=== PATIENT | female | born 1960 | race Caucasian/White ===

== ENCOUNTER 2020-01-09 20:10 | Emergency (ER) | payer MEDICAID, SELFPAY ==
[2020-01-09 20:53] VITALS: BP 124/82; PULSE 65; RESP 18; TEMP 37; O2SAT 97; BMI 25.0
--- NOTE | 2020-01-09 21:36 | ED.EYEPROB ---
HPI - Eye Problem General Chief complaint: Eye Problems Stated complaint: Eye pain Time Seen by Provider: 01/09/20 21:36 Source: patient Mode of arrival: ambulatory Limitations: no limitations History of Present Illness HPI Narrative: patient with no significant eye problems was sitting on the computer at 19:30 all of a sudden noticed in right eye she had floaters with scintillations no fix shape no loss of complete vision slight headache + Related Data Allergies Allergy/AdvReac Type Severity Reaction Status Date / Time ibuprofen [From MOTRIN] Allergy Unknown HIVES Unverified 11/03/19 15:02 naproxen [From ALEVE] Allergy Unknown STOMACH Unverified 11/03/19 15:02 PAIN liver extract Allergy Hives Verified 01/09/20 20:53 Review of Systems Review of Systems: REVIEW OF SYSTEMS: Pertinent positives and negatives are stated above in the history. GEN: no fevers, chills, fatigue HEENT: no nasal congestion, sore throat, ear pain NEURO: no , dizziness, focal weakness PULM: no cough, shortness of breath CV: no chest pain, palpitations, LE edema ABD: no abdominal pain, nausea, vomiting, diarrhea : no dysuria, urgency, frequency SKIN: no rash ROS otherwise negative x 10 PMFSH Past Medical History Medical History Anxiety Depression Social History Social History Alcohol intake: never Smoked in Last 30 Days: No Use of substances other than those prescribed or required for medical reasons: No Advance Directives: No Physical Exam Vital Signs: Vital Signs: Last Vital Signs Temp 98.6 F 01/09/20 20:53 Pulse 65 01/09/20 20:53 Resp 18 01/09/20 20:53 BP 124/82 01/09/20 20:53 Pulse Ox 97 01/09/20 20:53 Body Mass Index 25.0 Const: General: cooperative, healthy appearing, comfortable, no acute distress, well developed, alert and awake Nutritional Appearance: average body habitus Orientation/consciousness: oriented to person, oriented to place, oriented to time and patient oriented x3 Limitations: no limitations HENMT: Head: Yes normal to inspection Ears: hearing grossly normal bilaterally Eyes: Visual Bhandari: normal visual bhandari by confrontation Periorbital: periorbital findings normal Eyelids: Yes eyelids normal Conjunctivae: conjunctivae normal Sclerae: sclerae normal Corneas: corneas normal Pupils: Equal, round and reactive pupils present EOM: EOMs intact bilaterally Direct Ophthalmoscopy: normal light reflex, no photophobia, no papilledema, fundi normal bilaterally, anterior chamber normal and No retinal abnormality Neck: Neck: Yes normal visual inspection Carotids: normal carotid upstroke and no bruits Resp: Effort & Inspection: normal respiratory effort Auscultation: clear to auscultation bilaterally, no crackles, no rales and no rhonchi Cardio: Rate: regular rate Rhythm: regular rhythm Heart sounds: S2 normal heart sound present GI: Inspection: Yes normal to inspection Palpation (GI): Soft to palpation and nontender Neuro: General: oriented to person, oriented to place, oriented to time, patient oriented x3, gait normal, tone normal, moves all extremities, Normal light touch and pain sensation, no focal motor deficits and CN's II-XI intact bilaterally Cranial nerves: Yes CN's II-XII intact bilaterally, Yes Equal, round and reactive pupils present and Yes Nystagmus not present Extrem: General: Yes normal to inspection and Yes full ROM Procedures Procedure Narrative Procedure Narrative: ocular ultrasound of both eyes: done by myself no retinal detachment was seen no hemorrhage seen anterior chamber and posterior chamber seems to be normal Lens are intact MDM - Eye Problem MDM Narrative Medical decision making narrative: patient with acute onset of floaters with scintillations ultrasound of eyes is normal, fundus also normal likely cause of floaters is vitreous detachment or hemorrhage. Case discussed with Dr. Reyes artificial glass eye maker will see the patient tomorrow in the morning no need for any emergency at this time. patient visual acuity is normal with contact lenses Discharge Plan Discharge Clinical Impression: Vitreous degeneration and detachment Patient Disposition: Home, Self-Care Instructions: Visual Floaters (ED) Additional Instructions: see Dr. Reyes tomorrow at 740 am for further evaluation Referrals: Quinn Reyes [Physician] - 1 day Interventions: ED Discharge Assessment Last Done: 01/09/20 22:20 Discharge Date/Time: 01/09/20 22:21
== END 2020-01-09 22:21 | disposition home or self-care (01) ==
PROVIDERS: Emergency Provider Internal Medicine; PCP Nurse Practitioner Family
DX: H43.811 Vitreous degeneration, right eye (principal)
CPT/HCPCS: 99283; 99284

== ENCOUNTER 2021-03-15 09:00 | Outpatient (RCR) | payer OTHER, MEDICAID, SELFPAY ==
[2021-02-27 12:49] VITALS: BMI 23.5
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
--- NOTE | 2021-03-01 08:49 | PC.NURSE ---
Case opened in treatment team
--- NOTE | 2021-03-05 13:53 | PC.NURSE ---
The client called out sick
--- NOTE | 2021-03-07 15:56 | P.PNPSP_ITS ---
Subjective Subjective Date of Service: 03/07/21 Reason For Visit: PTSD, Chronic Guardianship: No Medical Problems Affecting Mental Status: No Interim History: States ?I am doing all right ?. Continues with dysphoric mood, although states it is improving. Denies any thought of harm to self or others, no safety concern. finding groups helpful. Medication Compliance: Yes Side effects from medications: No Attending Groups: Yes Review of Systems Acute medical concerns: No Medical Review of Systems: unchanged Review of Systems Review of Systems Yes all other systems are reviewed and are negative Constitutional: Reports no additional constitutional complaints Mental Status Exam Mental Status Exam Narrative: Well-developed, well-nourished female, in NAD. No involuntary movements, no tics/tremors, motor activity calm. Patient Appearance: Well Grooomed and Appropriate Patient Orientation: Person, Place, Time and Situation Level of Consciousness: Awake, Appropriate and Alert Patient Behavior: Appropriate, Cooperative and Good Eye Contact Mood Description: Appropriate, Depressed, Anxious and Labile Affect Description: Appropriate and Depressed Patient Cognition Impaired: No Ability to Follow Directions: Excellent Speech Pattern: Clear, Appropriate, Spontaneous Speech and Coherent Memory Description: Intact Hallucinations: None Thought Content: positive for Perseveration and positive for Suicidal Ideation (passive, no plan/intent.) Depressive Symptoms: Increased Anxiety, Difficulty Sleeping, Loss of Int. in Activity, Feelings of Worthlessness, Hopelessness, Feelings of Guilt and Increased Fatigue Judgement: Fair Diagnostics Vital Signs (24Hr): BMI result Body Mass Index 23.5 Assessment & Plan Assessment & Plan (1) Major depressive disorder, recurrent episode with anxious distress: Status: Acute Code(s): F33.9 - Major depressive disorder, recurrent, unspecified Assessment and Plan: States ?I am doing all right ?. Continues with dysphoric mood, although states it is improving. Denies any thought of harm to self or others, no safety concern. finding groups helpful. Reports that she feels current medication regimen including hydroxyzine, sertraline, and trazodone appear to be helping her. She describes the medications as ?easing the anxiety and sadness I feel ?. Not currently interested in any medication changes, as she works with her outpatient provider regarding this. (2) Chronic post-traumatic stress disorder (PTSD): Status: Acute Code(s): F43.12 - Post-traumatic stress disorder, chronic (3) Alcohol use disorder, moderate, dependence: Status: Acute Code(s): F10.20 - Alcohol dependence, uncomplicated Assessment and Plan: We discussed client's pattern of alcohol use. She reports that her alcohol use evolved over time, that she was taking in larger amounts and for longer period than was intended. She had attempted to cut down in 2020. She states though that after her relationship ended she began drinking again, and had been drinking daily through out the month of January. She states that she has been able to maintain abstinence since February 17 2021. She reports that 1 night she felt stressed, and found herself driving to a liquor store. She did not go in, and instead drove home. We discussed triggers, relapse prevention. She feels that she is learning about recovery, and that she hopes to maintain sobriety going forward. Discussed medications such as Campral, or naltrexone, in order to assist with cravings during early recovery. She reports that she does not feel she needs these medications at this time. Assessment and Plan: 1. Continue with current medication regimen as prescribed by outpatient provider. 2. Continue with current [facility] plan of care. 3. Follow-up as per protocol. Patient educated on: diagnosis, medication risk/benefits, substance abuse and therapeutic strategies Informed Consent: understands Reason for contiued partial hosp. stay Substantial Risk for: harm to self, inability to function and med/psych decompensation Certification I certify that partial hospital treatment is medically necessary due to the sy mptoms and problems resulting from the patient's mental illness and the failure to treat the patient at the partial hospital level of care would likely result in the patient requiring inpatient psychiatric care which could not be prevented at a less intensive level of care. I spent minutes with the patient and/or on the patient floor today, greater than?50% of which was spent counseling/coordinating care. Discharge Plan Discharge Attending provider: Oscar Garcia Primary Care Provider: Deb Gary Medications: No Action hydroxyzine HCl 50 mg Tablet 150 mg PO BEDTIME RF: 0 hydroxyzine HCl 50 mg Tablet 50 mg PO DAILY PRN (Reason: Anxiety) RF: 0 trazodone 100 mg Tablet 100 - 200 mg PO BEDTIME PRN (Reason: Insomnia) RF: 0 sertraline 25 mg Tablet 50 mg PO BEDTIME RF: 0 Referrals: Deb Gary, [facility] [Primary Care Provider] - 1 Week Stand Alone Forms: Patient Portal Discharge page Telehealth Telehealth Location of provider rendering services: practice address Location of patient: address on file Patient Identification confirmed using: Name, : Yes Telehealth method: video Patient verbally consented to treatment: Yes Patient verbally consented to billing insurance company: Yes Patient informed of any privacy concerns related to visit: Yes Time spent with patient (mins): 20
--- NOTE | 2021-03-08 15:30 | PC.NURSE ---
The client called me from outside [facility] where her sister is in the ED possibly dying and she is not allowed in due to COVID restrictions. We discussed ways to manage her intense feelings of anxiety and sadness safely and she has the crisis number if needed. She denies any suicidal ideation just feeling intense sadness and has no support.
--- NOTE | 2021-03-08 15:56 | PC.NURSE ---
At the end of the second group, pt announced that she has to leave program for the day. She said she just got a call letting her know that her sister in hospice is being transferred to the hospital.
--- NOTE | 2021-03-12 14:26 | PC.NURSE ---
spoke with jordy about her needs considering the severity of her anxiety and depression. She reports that she is safe and is only experiencing passive si with out plan or intent. We discussed ways to get support outside of the PHP group. She states that she has been dropping in to AA meetings on line and has reached out to her individual therapist.
--- NOTE | 2021-03-13 08:15 | PC.NURSE ---
Client called out because she hasnt slept and feels physically ill.
--- NOTE | 2021-03-14 11:01 | PC.NURSE ---
In the first group the client reported not sleeping for 36 hours. She stated that she feels overwhelmed with severe anxiety , confusion, severe PTSD symptoms, increased suicidal thoughts and thoughts of drinking. She spent most of the first group sobbing. I spoke with her after group and she acknowledged drinking one drink three days ago because she is so overwhelmed and doesn't want to drink but doesn't think she can manage the pain of her watching her sister dying and planning her ex brother in laws . We discussed either going inpatient or to respite which she states would be helpful. She agreed to a crisis evaluation and I called [facility] crisis. They will call her to schedule a time for the evaluation. I spoke with Matrina.
--- NOTE | 2021-03-14 15:06 | PC.NURSE ---
I spoke with Genia from [facility] crisis she completed the crisis evaluation on Patricia. The plan is for Patricia to go into respite. Today there are no beds available and they will try again tomorrow to get her in. In the meantime she will attend [facility] tomorrow.
--- NOTE | 2021-03-15 10:03 | PC.NURSE ---
left message with Cathy RASHID PERFUME MAKER re clients current exacerbation of symptoms including increased suicidal thoughts and recent crisis evaluation with planned respite or inpatient stay.
--- NOTE | 2021-03-15 12:07 | PC.NURSE ---
I spoke with Varinder at [facility] crisis. He states that there are no respite beds available for the client and she will need reassessment for inpatient level of care. She can go to the ED or they can complete it over zoom. I told him we will be sending her to [facility] ED.
--- NOTE | 2021-03-15 14:36 | PC.NURSE ---
Patient spoke to Jaci aGlan and expressed increase in depression and PTSD sxs. Patient started PHP on 02/27/21 and is not feeling much improvement. She presents with depressed mood and tearful affect. Reports passive SI stating, I want to stop it, i'm not feeling in charge of myself . Patient denied plan or intent. Patient's sister is in the hospital and patient reports her sister is dying and patient is having a difficult time with this as she reports her sister is her only support. Patient feeling helpless and hopeless. Reports increase in PTSD sxs. She reports no sleep for the past few days and reports relapsing on ETOH, 1 drink, a few days ago. Patient is help seeking and wants inpatient hospitalization to help stabilize her symptoms. Patient stated she feels safe to drive herself to the ER for an evaluation and agreed to call staff when she arrived at the [facility] ER. Care cleaning team member Renuka Torres and Heaven Downing are aware of above mentioned information. Spoke to Patricia at 1:40 who stated she would be leaving in 10- 15 minutes as she had to make some calls to the home regarding her sister and she had to czech packing. Patient called at 2:00 pm to state she was leaving her home and at 2:10 patient reports she is in the hospital parking lot and headed into the ER for a crisis evaluation. Nurse to nurse done with Kair LAZARO. Care Team updated.
--- NOTE | 2021-03-22 10:16 | PC.NURSE ---
Patient was admitted to the inpatient unit on 03/15/21.
== END 2021-03-18 07:12 | disposition home or self-care (01) ==
LOC: HO.PHPA 09:00
PROVIDERS: PCP Nurse Practitioner Family; Visit Provider Psychiatry & Neurology Psychiatry
DX: F33.9 Major depressive disorder, recurrent, unspecified (principal); F43.12 Post-traumatic stress disorder, chronic; F10.20 Alcohol dependence, uncomplicated
CPT/HCPCS: 90791; 90853

== ENCOUNTER 2021-03-15 14:09 | Inpatient (IN) | payer OTHER, MEDICAID, SELFPAY ==
--- NOTE | 2021-03-15 | ECG_ITS ---
Test Reason : MED CLEARANCE Blood Pressure : / mmHG Vent. Rate : 060 BPM Atrial Rate : 060 BPM P-R Int : 172 ms QRS Dur : 080 ms QT Int : 436 ms P-R-T Axes : 081 037 049 degrees QTc Int : 436 ms Normal sinus rhythm Possible Left atrial enlargement Borderline ECG No previous ECGs available Referred By: Charlotte Fragoso Electronically Signed By:OFELIA GOLD MD
[2021-03-15 14:23] VITALS: BP 123/55; PULSE 76; RESP 18; TEMP 36.7; O2SAT 98
[2021-03-15 14:28] VITALS: BMI 23.8
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
[2021-03-15] MEDS: LORazepam 1 MG TABLET 2 MG PO (14:59)
[2021-03-15 15:52] LABS: COVID-19 Test Negative (Negative)
[2021-03-15 17:05] LABS: MANUAL DIFF FLAG NO
[2021-03-15 17:06] LABS: Basophils Percent Auto 0.2 % (0-2); Eosinophils Absolute Auto 0.1 X10*3/uL (0.0-0.4); Eosinophils Percent Auto 1.1 % (0-4); Hematocrit 34.8 % (37.0-47.0); Hemoglobin 11.6 g/dl (12.0-16.0); Imm Gran Abs Auto 0.01 X10*3/uL (0.00-0.03); Imm Gran Pct Auto 0.2 % (0.0-0.4); Lymphocytes Absolute Auto 1.6 X10*3/uL (1.2-4.9); Lymphocytes Percent Auto 28.3 % (20-40); Mean Corpuscular HGB Conc 33.3 g/dl (31.0-35.0); Mean Corpuscular Hemoglobin 30.1 pg (27.0-33.0); Mean Corpuscular Volume 90.4 fL (80.0-98.0); Mean Platelet Volume 8.9 fL (9.4-12.3); Monocytes Absolute Auto 0.4 X10*3/uL (0.1-1.2); Monocytes Percent Auto 7.6 % (2-11); Neutrophils Absolute Auto 3.6 x10*3/uL (2.0-8.3); Neutrophils Percent Auto 62.6 % (45-73); Platelet Count 231 X10*3/uL (160-400); Red Blood Count 3.85 X10*6/uL (4.20-5.50); Red Cell Distribution Width 12.1 % (11.0-16.0); White Blood Count 5.7 X10*3/uL (4.8-10.8)
[2021-03-15 17:24] LABS: Ethanol < 10 mg/dL
[2021-03-15 17:26] LABS: Alanine Aminotransferase 18 U/L (0-31); Albumin Level 4.1 g/dL (3.5-5.0); Alkaline Phosphatase 86 U/L (39-117); Anion Gap 12 (12-20); Aspartate Amino Transferase 21 U/L (5-31); Bilirubin Direct < 0.2 mg/dL (0.0-0.5); Bilirubin Total 0.3 mg/dL (0.0-1.0); Blood Urea Nitrogen 14 mg/dL (9-16); Calcium 9.4 mg/dL (8.4-10.2); Carbon Dioxide 25 mmol/L (22-29); Chloride 108 mmol/L (96-108); Creatinine Clr Calc Pharmacy 78.8; Estimated Glomerular Filt Rate > 60; Glucose Random 91 mg/dL (60-115); Potassium 4.4 mmol/L (3.3-5.1); Sodium 141 mmol/L (135-145); Total Protein 6.4 g/dL (6.5-8.0)
[2021-03-15 18:03] LABS: Amphetamine Screen Urine Not Detected (Not Detect); Barbiturates, Urine Not Detected (Not Detect); Benzodiazepines Screen Urine Not Detected (Not Detect); Cannabinoid Screen Urine POSITIVE (Not Detect); Cocaine Screen Urine Not Detected (Not Detect); Fentanyl, urine Not Detected (Not Detect); Opiate Screen Urine Not Detected (Not Detect); Phencyclidine Screen Urine Not Detected (Not Detect)
[2021-03-15] MEDS: hydrOXYzine HCL 50 MG TABLET 150 MG PO (23:57)
[2021-03-15] MEDS: Sertraline HCL 50 MG TABLET PO (23:57)
[2021-03-15] MEDS: traZODone HCL 100 MG TABLET PO (23:57)
--- NOTE | 2021-03-16 00:07 | PC.NURSE ---
Dr. Garcia gave written permission via tiger text to allow nurse to give patient Atarax 150 mg PO and Sertraline 50 mg PO
[2021-03-16] MEDS: Magnesium Hydrox/Alum Hydrox 30 ML ORAL.SUSP PO (00:27)
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
--- NOTE | 2021-03-16 04:44 | PC.NURSE ---
Patricia appears to be sleeping at 0400. RR-16, no signs of distress noted. Ciwa was a 0 due to patient sleeping. Nurse will continue to monitor.
[2021-03-16 08:00] VITALS: BP 120/65; PULSE 72; RESP 18; TEMP 36.4; O2SAT 97
--- NOTE | 2021-03-16 10:55 | PC.NURSE ---
Patient CIWA score 8. Does not feel like she is having withdrawal sx.
[2021-03-16] MEDS: Acetaminophen 325 MG TABLET 650 MG PO (11:08)
[2021-03-16] MEDS: hydrOXYzine HCL 25 MG TABLET PO (11:24)
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
[2021-03-16 21:10] VITALS: BP 147/78; PULSE 71; RESP 18; TEMP 36.8; O2SAT 99
[2021-03-16] MEDS: hydrOXYzine HCL 50 MG TABLET 150 MG PO (22:10)
[2021-03-16] MEDS: Sertraline HCL 50 MG TABLET PO (22:11)
[2021-03-16] MEDS: traZODone HCL 100 MG TABLET PO (22:11)
[2021-03-17 07:21] LABS: Alanine Aminotransferase 14 U/L (0-31); Albumin Level 3.9 g/dL (3.5-5.0); Aspartate Amino Transferase 17 U/L (5-31); Bilirubin Direct 0.2 mg/dL (0.0-0.5); Bilirubin Total 0.4 mg/dL (0.0-1.0); Cholesterol 180 mg/dL; Gamma Glutamyl Transpeptidase 39 U/L (7-33); HDL Cholesterol 71 mg/dL; LDL Cholesterol Calculated 95 mg/dl; Total Protein 6.2 g/dL (6.5-8.0); Triglycerides 72 mg/dL
[2021-03-17 07:23] LABS: Alkaline Phosphatase 65 U/L (39-117)
[2021-03-17 07:24] LABS: Thyroid Stimulating Hormone 0.69 uIU/mL (0.32-4.0)
[2021-03-17 08:01] LABS: Estimated Average Glucose 108 mg/dL; Hemoglobin A1c % 5.4 %
[2021-03-17 09:33] VITALS: BP 108/63; PULSE 71; RESP 16; TEMP 36.6; O2SAT 97
[2021-03-17] MEDS: Acetaminophen 325 MG TABLET 650 MG PO ×3 (10:40→19:25)
--- NOTE | 2021-03-17 13:28 | P.PNPSI_ITS ---
Subjective Subjective Date of Service: 03/17/21 Reason For Visit: Depression Subjective Notes: Conditional Voluntary Interim History: The nursing staff reported that the patient was not happy in the unit, she stated that her needs are not satisfied in the unit. She feels safe in the facility. She has not attended groups and she is anxious and dysphoric. On interview, she stated that she still has nightmares, agreed to give a trial of Prazosin tonight. Mental Status Exam Mental Status Exam Patient Appearance: Well Grooomed Patient Orientation: Person and Situation Level of Consciousness: Awake Patient Behavior: Appropriate and Cooperative Mood Description: Depressed Affect Description: Constricted Patient Cognition Impaired: No Ability to Follow Directions: Good Speech Pattern: Clear Hallucinations: None Delusions: Not Present Thought Process: Linear Thought Content: positive for Circumstantial Judgement: Fair Diagnostics Vital Signs (24Hr): Vital Signs - 24 hr 03/16/21 21:10 03/17/21 09:33 Temperature 98.2 F 97.8 F Pulse Rate 71 71 Respiratory Rate 18 16 Blood Pressure 147/78 H 108/63 Pulse Oximetry 99 97 BMI result Verdana 4 Body Mass Index Verdana 4 23.8 Verdana 4 Verdana 4 Labs Results: 03/15/21 16:58 03/15/21 16:58 Labs: Laboratory Results - last 48 hr 03/15/21 03/15/21 03/15/21 15:26 16:58 16:58 WBC 5.7 RBC 3.85 L Hgb 11.6 L Hct 34.8 L MCV 90.4 MCH 30.1 MCHC 33.3 RDW 12.1 Plt Count 231 MPV 8.9 L Immature Gran % (Auto) 0.2 Neut % (Auto) 62.6 Lymph % (Auto) 28.3 Geary % (Auto) 7.6 Eos % (Auto) 1.1 Baso % (Auto) 0.2 Lymph # (Auto) 1.6 Geary # (Auto) 0.4 Eos # (Auto) 0.1 Baso # (Auto) 0.0 Abs Immat Gran (auto) 0.01 Absolute Neuts (auto) 3.6 Absolute Nucleated RBC 0.000 Nucleated RBC % (auto) 0.0 Sodium 141 Potassium 4.4 Chloride 108 Carbon Dioxide 25 Anion Gap 12 BUN 14 Creatinine 0.81 Estim Creat Clear Calc 78.8 Estimated GFR > 60 Random Glucose 91 Estimat Average Glucose Hemoglobin A1c % Calcium 9.4 Total Bilirubin 0.3 Direct Bilirubin < 0.2 GGT AST 21 ALT 18 Alkaline Phosphatase 86 Total Protein 6.4 L Albumin 4.1 Triglycerides Cholesterol LDL Cholesterol, Calc HDL Cholesterol TSH Urine Opiates Screen Urine Fentanyl Screen Ur Barbiturates Screen Ur Phencyclidine Scrn Ur Amphetamines Screen U Benzodiazepines Scrn Urine Cocaine Screen U Marijuana (THC) Screen Ethyl Alcohol COVID-19 ([facility]) Negative COVID-19 Clin Com See Note 03/15/21 03/15/21 03/17/21 16:58 17:27 06:35 WBC RBC Hgb Hct MCV MCH MCHC RDW Plt Count MPV Immature Gran % (Auto) Neut % (Auto) Lymph % (Auto) Geary % (Auto) Eos % (Auto) Baso % (Auto) Lymph # (Auto) Geary # (Auto) Eos # (Auto) Baso # (Auto) Abs Immat Gran (auto) Absolute Neuts (auto) Absolute Nucleated RBC Nucleated RBC % (auto) Sodium Potassium Chloride Carbon Dioxide Anion Gap BUN Creatinine Estim Creat Clear Calc Estimated GFR Random Glucose Estimat Average Glucose Hemoglobin A1c % Calcium Total Bilirubin 0.4 Direct Bilirubin 0.2 GGT 39 H AST 17 ALT 14 Alkaline Phosphatase 65 D Total Protein 6.2 L Albumin 3.9 Triglycerides 72 Cholesterol 180 LDL Cholesterol, Calc 95 HDL Cholesterol 71 TSH 0.69 Urine Opiates Screen Not Detected Urine Fentanyl Screen Not Detected Ur Barbiturates Screen Not Detected Ur Phencyclidine Scrn Not Detected Ur Amphetamines Screen Not Detected U Benzodiazepines Scrn Not Detected Urine Cocaine Screen Not Detected U Marijuana (THC) Screen POSITIVE H Ethyl Alcohol < 10 COVID-19 ([facility]) COVID-19 Clin Com 03/17/21 06:35 WBC RBC Hgb Hct MCV MCH MCHC RDW Plt Count MPV Immature Gran % (Auto) Neut % (Auto) Lymph % (Auto) Geary % (Auto) Eos % (Auto) Baso % (Auto) Lymph # (Auto) Geary # (Auto) Eos # (Auto) Baso # (Auto) Abs Immat Gran (auto) Absolute Neuts (auto) Absolute Nucleated RBC Nucleated RBC % (auto) Sodium Potassium Chloride Carbon Dioxide Anion Gap BUN Creatinine Estim Creat Clear Calc Estimated GFR Random Glucose Estimat Average Glucose 108 Hemoglobin A1c % 5.4 Calcium Total Bilirubin Direct Bilirubin GGT AST ALT Alkaline Phosphatase Total Protein Albumin Triglycerides Cholesterol LDL Cholesterol, Calc HDL Cholesterol TSH Urine Opiates Screen Urine Fentanyl Screen Ur Barbiturates Screen Ur Phencyclidine Scrn Ur Amphetamines Screen U Benzodiazepines Scrn Urine Cocaine Screen U Marijuana (THC) Screen Ethyl Alcohol COVID-19 ([facility]) COVID-19 Clin Com Medications Medications Current Medications Acetaminophen (Acetaminophen 325 Mg Tablet) 650 mg PO Q6H PRN PRN Reason: Headache/Pain Mild Scale (1-3) Last Admin: 03/17/21 10:40 Dose: 650 mg Documented by: Al Hydroxide/Mg Hydroxide (Magnesium Hydrox/Alum Hydrox 30 Ml Oral.Susp) 30 ml PO Q6H PRN PRN Reason: Heartburn/Nausea Last Admin: 03/16/21 00:27 Dose: 30 ml Documented by: Docusate Sodium (Docusate Sodium 100 Mg Capsule) 100 mg PO BEDTIME [facility] Hydroxyzine HCl (Hydroxyzine Hcl 25 Mg Tablet) 25 mg PO BEDTIME PRN PRN Reason: Anxiety Hydroxyzine HCl (Hydroxyzine Hcl 50 Mg Tablet) 150 mg PO BEDTIME [facility] Last Admin: 03/16/21 22:10 Dose: 150 mg Documented by: Hydroxyzine HCl (Hydroxyzine Hcl 25 Mg Tablet) 25 mg PO Q6H PRN PRN Reason: Anxiety Last Admin: 03/16/21 11:24 Dose: 25 mg Documented by: Magnesium Hydroxide (Milk Of Magnesia 30 Ml Oral.Susp) 30 ml PO DAILY PRN PRN Reason: Constipation Non-Formulary Medication (Patient Own Medication) 1 each TOPICAL DAILY [facility] Sertraline HCl (Sertraline Hcl 50 Mg Tablet) 50 mg PO BEDTIME [facility] Last Admin: 03/16/21 22:11 Dose: 50 mg Documented by: Trazodone HCl (Trazodone Hcl 50 Mg Tablet) 50 mg PO BEDTIME PRN PRN Reason: Insomnia Trazodone HCl (Trazodone Hcl 100 Mg Tablet) 100 - 200 mg PO BEDTIME PRN PRN Reason: Insomnia Last Admin: 03/16/21 22:11 Dose: 200 mg Documented by: Allergies Allergies Allergy/AdvReac Type Severity Reaction Status Date / Time ibuprofen [From MOTRIN] Allergy Unknown HIVES Verified 03/15/21 14:28 naproxen [From ALEVE] Allergy Unknown STOMACH Verified 03/15/21 14:28 PAIN buspirone Allergy Unknown Verified 03/15/21 14:28 cyclobenzaprine Allergy Rash Verified 03/15/21 14:28 [From Flexeril] liver extract Allergy Hives Verified 03/15/21 14:28 Assessment & Plan Assessment & Plan (1) Post traumatic stress disorder: Status: Acute Code(s): F43.10 - Post-traumatic stress disorder, unspecified (2) MDD (major depressive disorder): Status: Acute Code(s): F32.9 - Major depressive disorder, single episode, unspecified (3) Alcohol use disorder, moderate, dependence: Status: Acute Code(s): F10.20 - Alcohol dependence, uncomplicated Plan Middle age female with a long history of MDD, PTSD and alcohol use disorder admitted for exacerbation of symptoms in the context of more stressors such as the illness of her sister and limited social support. Plan 1. Contnue Zoloft and other medications 2. CIWA with no medications for coverage for the next 24 hours, so far no high numbers 3. Gather collateral information. 4. Reassessment with results. 5. Prazosin 1 m gpo qhs 6. Ointments for rectal pain. I spent minutes with the patient and/or on the patient floor today, greater than?50% of which was spent counseling/coordinating care. Reason for contiued inpatient stay Substantial Risk for: inability to function and rapid decompensation
[2021-03-17 18:00] VITALS: BP 112/61; PULSE 68; RESP 16; TEMP 36.7; O2SAT 98
[2021-03-17] MEDS: Sertraline HCL 50 MG TABLET PO (20:38)
[2021-03-17] MEDS: Prazosin HCL 1 MG CAPSULE PO (20:38)
[2021-03-17] MEDS: Docusate Sodium 100 MG CAPSULE PO (20:39)
[2021-03-17] MEDS: hydrOXYzine HCL 50 MG TABLET 150 MG PO (20:39)
[2021-03-18 08:00] VITALS: BP 106/57; PULSE 67; TEMP 36.3; O2SAT 99
[2021-03-18] MEDS: hydrOXYzine HCL 25 MG TABLET PO (10:09)
[2021-03-18] MEDS: Acetaminophen 325 MG TABLET 650 MG PO (10:09)
[2021-03-18] MEDS: LORazepam 1 MG TABLET PO ×3 (12:17→21:32)
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
[2021-03-18 18:00] VITALS: BP 128/69; PULSE 68; RESP 18; TEMP 36.4; O2SAT 99
[2021-03-18] MEDS: Prazosin HCL 1 MG CAPSULE 2 MG PO (21:30)
[2021-03-18] MEDS: hydrOXYzine HCL 50 MG TABLET 150 MG PO (21:32)
[2021-03-18] MEDS: Sertraline HCL 50 MG TABLET PO (21:32)
[2021-03-18] MEDS: Docusate Sodium 100 MG CAPSULE PO (21:32)
[2021-03-19] MEDS: LORazepam 1 MG TABLET PO ×3 (09:34→21:14)
[2021-03-19 09:39] VITALS: BP 116/70; PULSE 71; RESP 16; TEMP 36.4; O2SAT 100
--- NOTE | 2021-03-19 13:22 | P.PNPSI_ITS ---
Subjective Subjective Date of Service: 03/19/21 Reason For Visit: Depression Interim History: pt found resting in bed. she had attended group earlier in the day. agreeable to come for interview. complaints there is nothing to do on the unit, that there is nothing to occupy one's mind with, so she just sits and ruminates all day. reports waves of anger, fear, fight, flee. looking to delve into her trauma deeply; informed her that work was better done in individual trauma-focused therapy. she was educated about the various options and about exposure in general. she reported being triggered by loud behaviors on the unit, and she was encouraged to reframe that view into one where it is an exposure task for her. pt declines to change her medications. definitely much more calm than yesterday. per staff, c/o little treatment here, no groups. med-compliant. Mental Status Exam Mental Status Exam Narrative: appropriately dressed and groomed. cooperative. PMA of near-constant hand/finger movements. speech nml in rate and incr in amount, nml loudness, decr latency. thoughts relevant, linear. affect constricted, normo-intense, non-labile. mood anxious. passive SI. no HI/ABVH expressed. Diagnostics Vital Signs (24Hr): Vital Signs - 24 hr 03/18/21 18:00 03/19/21 09:39 Temperature 97.6 F 97.6 F Pulse Rate 68 71 Respiratory Rate 18 16 Blood Pressure 128/69 116/70 Pulse Oximetry 99 100 BMI result Verdana 4 Body Mass Index Verdana 4 23.8 Verdana 4 Verdana 4 Labs Results: 03/15/21 16:58 03/15/21 16:58 Medications Medications Current Medications Acetaminophen (Acetaminophen 325 Mg Tablet) 650 mg PO Q4H PRN PRN Reason: Headache/Pain Mild Scale (1-3) Last Admin: 03/18/21 10:09 Dose: 650 mg Documented by: Al Hydroxide/Mg Hydroxide (Magnesium Hydrox/Alum Hydrox 30 Ml Oral.Susp) 30 ml PO Q6H PRN PRN Reason: Heartburn/Nausea Last Admin: 03/16/21 00:27 Dose: 30 ml Documented by: Docusate Sodium (Docusate Sodium 100 Mg Capsule) 100 mg PO BEDTIME [facility] Last Admin: 03/18/21 21:32 Dose: 100 mg Documented by: Hydroxyzine HCl (Hydroxyzine Hcl 25 Mg Tablet) 25 mg PO BEDTIME PRN PRN Reason: Anxiety Hydroxyzine HCl (Hydroxyzine Hcl 50 Mg Tablet) 150 mg PO BEDTIME [facility] Last Admin: 03/18/21 21:32 Dose: 150 mg Documented by: Hydroxyzine HCl (Hydroxyzine Hcl 25 Mg Tablet) 25 mg PO Q6H PRN PRN Reason: Anxiety Last Admin: 03/18/21 10:09 Dose: 25 mg Documented by: Lorazepam (Lorazepam 1 Mg Tablet) 1 mg PO TID [facility] Last Admin: 03/19/21 09:34 Dose: 1 mg Documented by: Magnesium Hydroxide (Milk Of Magnesia 30 Ml Oral.Susp) 30 ml PO DAILY PRN PRN Reason: Constipation Patient Own Med ( Lidocaine 5% Nifediine 0.2% Oint) 1 each TOPICAL BID [facility] Last Admin: 03/19/21 09:36 Dose: 1 each Documented by: Patient Own Med ( Calmoseptine Ointment) 1 each TOPICAL DAILY [facility] Last Admin: 03/19/21 09:36 Dose: 1 each Documented by: Prazosin HCl (Prazosin Hcl 1 Mg Capsule) 2 mg PO BEDTIME [facility]; Protocol Last Admin: 03/18/21 21:30 Dose: 2 mg Documented by: Sertraline HCl (Sertraline Hcl 50 Mg Tablet) 50 mg PO BEDTIME [facility] Last Admin: 03/18/21 21:32 Dose: 50 mg Documented by: Trazodone HCl (Trazodone Hcl 50 Mg Tablet) 50 mg PO BEDTIME PRN PRN Reason: Insomnia Trazodone HCl (Trazodone Hcl 100 Mg Tablet) 100 - 200 mg PO BEDTIME PRN PRN Reason: Insomnia Last Admin: 03/16/21 22:11 Dose: 200 mg Documented by: Allergies Allergies Allergy/AdvReac Type Severity Reaction Status Date / Time ibuprofen [From MOTRIN] Allergy Unknown HIVES Verified 03/15/21 14:28 naproxen [From ALEVE] Allergy Unknown STOMACH Verified 03/15/21 14:28 PAIN buspirone Allergy Unknown Verified 03/15/21 14:28 cyclobenzaprine Allergy Rash Verified 03/15/21 14:28 [From Flexeril] liver extract Allergy Hives Verified 03/15/21 14:28 Assessment & Plan Assessment & Plan (1) Post traumatic stress disorder: Status: Acute Code(s): F43.10 - Post-traumatic stress disorder, unspecified (2) MDD (major depressive disorder): Status: Acute Code(s): F32.9 - Major depressive disorder, single episode, unspecified (3) Alcohol use disorder, moderate, dependence: Status: Acute Code(s): F10.20 - Alcohol dependence, uncomplicated Plan Middle age female with a long history of MDD, PTSD and alcohol use disorder admitted for exacerbation of symptoms in the context of more stressors such as the illness of her sister and limited social support. Plan 1. Continue Zoloft and other medications. started ativan 1 mg TID 03/18 for incapacitating anxiety. 2. DCed CIWA - not scoring 3. Gather collateral information. 4. Reassessment with results. 5. Prazosin 1 QHS started at admission, increased to 2 mg QHS as of 03/18. 6. Ointments for anal pain. 7. dispo - refer to trauma-focused therapy at discharge. would like to complete the PHP as well. I spent minutes with the patient and/or on the patient floor today, greater than?50% of which was spent counseling/coordinating care. Reason for contiued inpatient stay Substantial Risk for: inability to function and rapid decompensation
[2021-03-19] MEDS: Acetaminophen 325 MG TABLET 650 MG PO ×2 (15:42→21:14)
[2021-03-19 18:00] VITALS: BP 120/67; PULSE 64; RESP 18; TEMP 36.7; O2SAT 98
[2021-03-19] MEDS: traZODone HCL 50 MG TABLET PO (21:14)
[2021-03-19] MEDS: hydrOXYzine HCL 50 MG TABLET 150 MG PO (21:14)
[2021-03-19] MEDS: Docusate Sodium 100 MG CAPSULE PO (21:14)
[2021-03-19] MEDS: Sertraline HCL 50 MG TABLET PO (21:14)
[2021-03-19] MEDS: Prazosin HCL 1 MG CAPSULE 2 MG PO (21:14)
[2021-03-20] MEDS: LORazepam 1 MG TABLET PO ×3 (09:30→21:47)
[2021-03-20 09:35] VITALS: BP 123/69; PULSE 79; RESP 16; TEMP 36.7; O2SAT 99
[2021-03-20] MEDS: polyethylene glycoL 3350 17 GM POWD.PACK PO (11:44)
--- NOTE | 2021-03-20 20:52 | HO.PSYCHPN ---
Subjective Subjective Date of Service: 03/20/21 Reason For Visit: Depression Interim History: pt c/o nightmares, remains focused on the perceived deficiencies of M3 and her treatment here. essentially a slightly shorter rerun of yesterday's interview occurred today, including MD's encouraging pt to consider the most therapeutic treatment setting for her. declined to change medications. per staff, pt active, appropriate, isolative. 6/10 depression, 8/10 anxiety. no SI, no AVH. asking to check email. Mental Status Exam Mental Status Exam Narrative: appropriately dressed and groomed. cooperative. PMA of frequent hand/finger movements. speech nml in rate and incr in amount, nml loudness, decr latency. thoughts relevant, linear. affect constricted, normo-intense, non-labile. mood anxious. no SI/HI/ABVH expressed. Diagnostics Vital Signs (24Hr): Vital Signs - 24 hr 03/20/21 09:35 Temperature 98.0 F Pulse Rate 79 Respiratory Rate 16 Blood Pressure 123/69 Pulse Oximetry 99 BMI result Body Mass Index 23.8 Labs Results: 03/15/21 16:58 03/15/21 16:58 Medications Medications Current Medications Acetaminophen (Acetaminophen 325 Mg Tablet) 650 mg PO Q4H PRN PRN Reason: Headache/Pain Mild Scale (1-3) Last Admin: 03/19/21 21:14 Dose: 650 mg Documented by: Al Hydroxide/Mg Hydroxide (Magnesium Hydrox/Alum Hydrox 30 Ml Oral.Susp) 30 ml PO Q6H PRN PRN Reason: Heartburn/Nausea Last Admin: 03/16/21 00:27 Dose: 30 ml Documented by: Docusate Sodium (Docusate Sodium 100 Mg Capsule) 100 mg PO BEDTIME [facility] Last Admin: 03/19/21 21:14 Dose: 100 mg Documented by: Hydroxyzine HCl (Hydroxyzine Hcl 25 Mg Tablet) 25 mg PO BEDTIME PRN PRN Reason: Anxiety Hydroxyzine HCl (Hydroxyzine Hcl 50 Mg Tablet) 150 mg PO BEDTIME [facility] Last Admin: 03/19/21 21:14 Dose: 150 mg Documented by: Hydroxyzine HCl (Hydroxyzine Hcl 25 Mg Tablet) 25 mg PO Q6H PRN PRN Reason: Anxiety Last Admin: 03/18/21 10:09 Dose: 25 mg Documented by: Lorazepam (Lorazepam 1 Mg Tablet) 1 mg PO TID [facility] Last Admin: 03/20/21 15:36 Dose: 1 mg Documented by: Magnesium Hydroxide (Milk Of Magnesia 30 Ml Oral.Susp) 30 ml PO DAILY PRN PRN Reason: Constipation Patient Own Med ( Lidocaine 5% Nifediine 0.2% Oint) 1 each TOPICAL BID [facility] Last Admin: 03/20/21 09:30 Dose: 1 each Documented by: Patient Own Med ( Calmoseptine Ointment) 1 each TOPICAL DAILY [facility] Last Admin: 03/20/21 09:32 Dose: 1 each Documented by: Polyethylene Glycol (Polyethylene Glycol 3350 17 Gm Powd.Pack) 17 gm PO DAILY PRN PRN Reason: Constipation Last Admin: 03/20/21 11:44 Dose: 17 gm Documented by: Prazosin HCl (Prazosin Hcl 1 Mg Capsule) 3 mg PO BEDTIME [facility]; Protocol Sertraline HCl (Sertraline Hcl 50 Mg Tablet) 50 mg PO BEDTIME [facility] Last Admin: 03/19/21 21:14 Dose: 50 mg Documented by: Trazodone HCl (Trazodone Hcl 50 Mg Tablet) 50 mg PO BEDTIME PRN PRN Reason: Insomnia Last Admin: 03/19/21 21:14 Dose: 50 mg Documented by: Trazodone HCl (Trazodone Hcl 100 Mg Tablet) 100 - 200 mg PO BEDTIME PRN PRN Reason: Insomnia Last Admin: 03/16/21 22:11 Dose: 200 mg Documented by: Allergies Allergies Allergy/AdvReac Type Severity Reaction Status Date / Time ibuprofen [From MOTRIN] Allergy Unknown HIVES Verified 03/15/21 14:28 naproxen [From ALEVE] Allergy Unknown STOMACH Verified 03/15/21 14:28 PAIN buspirone Allergy Unknown Verified 03/15/21 14:28 cyclobenzaprine Allergy Rash Verified 03/15/21 14:28 [From Flexeril] liver extract Allergy Hives Verified 03/15/21 14:28 Assessment & Plan Assessment & Plan (1) Post traumatic stress disorder: Status: Acute Code(s): F43.10 - Post-traumatic stress disorder, unspecified (2) MDD (major depressive disorder): Status: Acute Code(s): F32.9 - Major depressive disorder, single episode, unspecified (3) Alcohol use disorder, moderate, dependence: Status: Acute Code(s): F10.20 - Alcohol dependence, uncomplicated Plan Middle age female with a long history of MDD, PTSD and alcohol use disorder admitted for exacerbation of symptoms in the context of more stressors such as the illness of her sister and limited social support. Plan 1. Continue Zoloft and other medications. started ativan 1 mg TID 03/18 for incapacitating anxiety. 2. DCed CIWA - not scoring 3. Gather collateral information. 4. Reassessment with results. 5. Prazosin 1 QHS started at admission, increased to 2 mg QHS as of 03/18. 6. Ointments for anal pain. 7. dispo - refer to trauma-focused therapy at discharge. would like to complete the PHP as well. I spent minutes with the patient and/or on the patient floor today, greater than?50% of which was spent counseling/coordinating care. Reason for contiued inpatient stay Substantial Risk for: inability to function and rapid decompensation
[2021-03-20 21:41] VITALS: BP 121/69; PULSE 65; TEMP 36.8; O2SAT 98
[2021-03-20] MEDS: Docusate Sodium 100 MG CAPSULE PO (21:47)
[2021-03-20] MEDS: Prazosin HCL 1 MG CAPSULE 3 MG PO (21:47)
[2021-03-20] MEDS: hydrOXYzine HCL 50 MG TABLET 150 MG PO (21:47)
[2021-03-20] MEDS: Sertraline HCL 50 MG TABLET PO (21:47)
[2021-03-21 07:00] VITALS: BMI 23.6
[2021-03-21 09:43] VITALS: BP 103/55; PULSE 82; RESP 16; TEMP 36.8; O2SAT 98
[2021-03-21] MEDS: Acetaminophen 325 MG TABLET 650 MG PO (09:55)
[2021-03-21] MEDS: LORazepam 1 MG TABLET PO ×3 (10:02→22:09)
[2021-03-21] MEDS: polyethylene glycoL 3350 17 GM POWD.PACK PO (10:02)
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
[2021-03-21 18:00] VITALS: BP 132/74; PULSE 60; RESP 16; TEMP 36.5; O2SAT 97
[2021-03-21] MEDS: hydrOXYzine HCL 50 MG TABLET 150 MG PO (22:06)
[2021-03-21] MEDS: Sertraline HCL 50 MG TABLET PO (22:08)
[2021-03-21] MEDS: Prazosin HCL 1 MG CAPSULE 3 MG PO (22:08)
[2021-03-22] MEDS: LORazepam 1 MG TABLET PO (08:53)
[2021-03-22 09:00] VITALS: BP 124/71; PULSE 68; TEMP 36.4; O2SAT 99
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
== END 2021-03-22 13:45 | disposition home or self-care (01) | DRG 881 ==
LOC: HO.ED 19:30 → HO.PADLT16 22:44
PROVIDERS: Admitting Provider Psychiatry & Neurology Psychiatry; Emergency Provider Emergency Medicine; PCP Nurse Practitioner Family; Visit Provider Psychiatry & Neurology Psychiatry
DX: F32.9 Major depressive disorder, single episode, unspecified (principal); F43.10 Post-traumatic stress disorder, unspecified; F10.20 Alcohol dependence, uncomplicated; Z20.822 Contact with and (suspected) exposure to COVID-19; Z87.891 Personal history of nicotine dependence; Z88.6 Allergy status to analgesic agent; Z79.899 Other long term (current) drug therapy
CPT/HCPCS: 36415; 80053; 80061; 80076; 80307; 82077; 82248; 82977; 83036; 84443; 85025; 87635; 93005; 99285

== ENCOUNTER 2021-04-17 11:15 | Outpatient (RCR) | payer OTHER, MEDICAID, SELFPAY ==
[2021-03-26 11:44] VITALS: BMI 23.5
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
--- NOTE | 2021-03-28 14:27 | PC.NURSE ---
Case opened in treatment team
--- NOTE | 2021-04-01 20:44 | P.PNPSP_ITS ---
Subjective Subjective Date of Service: 04/01/21 Reason For Visit: PTSD, MDD, Anxiety, Alcohol Use D/O Guardianship: No Medical Problems Affecting Mental Status: No Interim History: Patricia reports she is feeling overwhelmed, very anxious today. Experienced panic attack after meeting with younger sister this past weekend. Tearful during encounter. No reports of SI, no safety concern at this time. Medication Compliance: Yes Side effects from medications: No Attending Groups: Yes Review of Systems Acute medical concerns: No Review of Systems Review of Systems Yes all other systems are reviewed and are negative Constitutional: Reports no additional constitutional complaints Mental Status Exam Mental Status Exam Narrative: Tearful throughout encounter, anxious mood/affect. Patient Appearance: Well Grooomed and Fatigued Patient Orientation: Person, Place, Time and Situation Level of Consciousness: Awake and Appropriate Patient Behavior: Cooperative, Good Eye Contact and Crying Mood Description: Anxious Affect Description: Depressed and Anxious Patient Cognition Impaired: No Ability to Follow Directions: Excellent Speech Pattern: Clear, Appropriate and Soft-Spoken Memory Description: Intact Hallucinations: None Delusions: Not Present Thought Process: Intact Thought Content: positive for Intact Depressive Symptoms: Increased Anxiety, Crying Spells, Loss of Int. in Activity, Feelings of Worthlessness, Feelings of Guilt, Unhappiness, Increased Fatigue and Difficulty Concentrating Judgement: Fair Diagnostics Vital Signs (24Hr): BMI result Body Mass Index 23.5 Assessment & Plan Assessment & Plan (1) Chronic post-traumatic stress disorder (PTSD): Status: Acute Code(s): F43.12 - Post-traumatic stress disorder, chronic Assessment and Plan: Client describes ongoing stressor as having a sister recently placed into hospice care. She met with another sister this past weekend, which triggered past memories of trauma. She then experienced increased anxiety, and a panic attack. She describes it as her fight or fight response being activated. She states that this was extemely upsetting, and voiced frustration regarding this happening. She does have lorazepam as an available medication for increased anxiety/panic. However, she did not utilize this when she felt the oncoming surge of anxiety. We discussed having this medication available for incidents such as these, when she feels the flight or fight response coming on. We also reviewed other coping techniques that she has. (2) Major depressive disorder, recurrent episode with anxious distress: Status: Acute Code(s): F33.9 - Major depressive disorder, recurrent, unspecified Assessment and Plan: Continues with depressed mood, but states she is mostly concerned with her PTSD symptoms at this time. No reports of SI, no safety concern at this time. Plan 1. Client encouraged to utilize prn medications, as well as other coping skills, such as grounding, etc, when experiencing increased anxiety and panic r/t triggers of past trauma. 2. Continue with current [facility] plan of care. 3. Follow-up as per protocol. Patient educated on: diagnosis, medication risk/benefits and therapeutic strategies Informed Consent: understands Certification I certify that partial hospital treatment is medically necessary due to the symptoms and problems resulting from the patient's mental illness and the failure to treat the patient at the partial hospital level of care would likely result in the patient requiring inpatient psychiatric care which could not be prevented at a less intensive level of care. I spent minutes with the patient and/or on the patient floor today, greater than?50% of which was spent counseling/coordinating care. Discharge Plan Discharge Attending provider: Oscar Garcia Medications: No Action hydroxyzine HCl 50 mg Tablet 150 mg PO BEDTIME 0RF Rx Instructions: Take 3 tabs at Bedtime. trazodone 100 mg Tablet 100 - 200 mg PO BEDTIME PRN (Reason: Insomnia) 0RF Rx Instructions: May take 1-2 tabs at bedtime for sleep as needed. sertraline 25 mg Tablet 50 mg PO BEDTIME 0RF Rx Instructions: Take 2 tabs daily at bedtime. prazosin 1 mg Capsule 3 mg PO BEDTIME 30 Days Qty: 90 0RF Protocol: Hold for SBP< HOLD for SBP < : 90 lorazepam 1 mg Tablet 1 mg PO TID 15 Days Qty: 45 1RF Stand Alone Forms: Patient Portal Discharge page Telehealth Telehealth Location of provider rendering services: practice address Location of patient: address on file Patient Identification confirmed using: Name, : Yes Telehealth method: video Patient verbally consented to treatment: Yes Patient verbally consented to billing insurance company: Yes Patient informed of any privacy concerns related to visit: Yes Time spent with patient (mins): 20
--- NOTE | 2021-04-02 08:26 | PC.NURSE ---
The client called out sick
--- NOTE | 2021-04-05 12:48 | PC.NURSE ---
Patricia stated this morning she thinks she is having a reaction to her new medication she took last night Prazosin. Reports having dizziness/nausea and almost fell last night and pain in the back of her eyes and forehead. She has a history of migraines. She is increasing her fluid intake. Did not feel she needed to see a doctor/PCP. Deb Wiggins NP is aware and has an appointment to see the patient today scheduled at 1:00.
--- NOTE | 2021-04-05 22:21 | P.PNPSP_ITS ---
Subjective Subjective Date of Service: 04/05/21 Reason For Visit: PTSD, MDD, Anxiety, Alcohol Use D/O Interim History: Patient reporting that she has been experiencing headaches and some dizziness over the last 2 days which she feels may be related to her prazosin. Denies any other symptoms and reports head and eye pain have only occurred very late in the evening or very early in the morning. Discussed dosing times and patient reports that she usually takes it btwn 7-8pm, and last evening she took it at 10pm. Encouraged to take it earlier to avoid any morning symptoms. Patient does acknowledge that medication is helpful with nightmares and sleep paralysis. Review of Systems Constitutional: Reports as per HPI and Reports no additional constitutional complaints Mental Status Exam Mental Status Exam Patient Appearance: Well Grooomed and Appropriate Patient Orientation: Person, Place, Time and Situation Patient Behavior: Appropriate Mood Description: Relaxed Affect Description: Calm Patient Cognition Impaired: No Thought Process: Intact Thought Content: positive for Intact and positive for Goal Oriented Judgement: Good Diagnostics Vital Signs (24Hr): BMI result Body Mass Index 23.5 Assessment & Plan Assessment & Plan (1) Post traumatic stress disorder: Status: Acute Code(s): F43.10 - Post-traumatic stress disorder, unspecified Assessment and Plan: * Decrease prazosin to 2mg at bedtime * follow up next week Certification I certify that partial hospital treatment is medically necessary due to the symptoms and problems resulting from the patient's mental illness and the failure to treat the patient at the partial hospital level of care would likely result in the patient requiring inpatient psychiatric care which could not be prevented at a less intensive level of care. I spent ___15___ minutes with the patient and/or on the patient floor today, greater than?50% of which was spent counseling/coordinating care. Discharge Plan Discharge Attending provider: Oscar Garcia Medications: No Action hydroxyzine HCl 50 mg Tablet 150 mg PO BEDTIME 0RF Rx Instructions: Take 3 tabs at Bedtime. trazodone 100 mg Tablet 100 - 200 mg PO BEDTIME PRN (Reason: Insomnia) 0RF Rx Instructions: May take 1-2 tabs at bedtime for sleep as needed. sertraline 25 mg Tablet 50 mg PO BEDTIME 0RF Rx Instructions: Take 2 tabs daily at bedtime. prazosin 1 mg Capsule 3 mg PO BEDTIME 30 Days Qty: 90 0RF Protocol: Hold for SBP< HOLD for SBP < : 90 lorazepam 1 mg Tablet 1 mg PO TID 15 Days Qty: 45 1RF Stand Alone Forms: Patient Portal Discharge page Telehealth Telehealth Location of provider rendering services: practice address Location of patient: address on file Patient Identification confirmed using: Name, : Yes Telehealth method: video Patient verbally consented to treatment: Yes
--- NOTE | 2021-04-09 14:59 | PC.NURSE ---
I spoke with group billing coordinator at [facility]. He states that Patricia will have to fill out the form on their web site and have her individual therapist fill out a form also.
--- NOTE | 2021-04-09 15:01 | PC.NURSE ---
I spoke with Patricia about the intake process for [facility]. I also discussed having her speak with HR at her job for longer term coverage from the state.
--- NOTE | 2021-04-10 16:01 | P.PNPSP_ITS ---
Subjective Subjective Date of Service: 04/10/21 Reason For Visit: PTSD, MDD, Anxiety, Alcohol Use D/O Guardianship: No Medical Problems Affecting Mental Status: No Interim History: Reports I am hanging in there. Still the way I was when I saw you last . Tearful at times, concerned because her employer has denied Ltd. Reports stopped taking prazosin due to side effects. Some passive SI, no intent or plan. Does not want any medication changes at this time. Medication Compliance: Yes Side effects from medications: No Attending Groups: Yes Review of Systems Acute medical concerns: No Medical Review of Systems: unchanged Review of Systems Review of Systems Yes all other systems are reviewed and are negative Constitutional: Reports no additional constitutional complaints Mental Status Exam Mental Status Exam Narrative: Appropriately dressed and groomed, fully attentive during encounter. NAD. Patient Appearance: Well Grooomed and Appropriate Patient Orientation: Person, Place, Time and Situation Level of Consciousness: Awake, Appropriate and Alert Patient Behavior: Appropriate, Cooperative, Good Eye Contact and Crying Mood Description: Depressed Affect Description: Depressed Patient Cognition Impaired: No Ability to Follow Directions: Good Speech Pattern: Clear, Appropriate, Coherent and Soft-Spoken Memory Description: Intact Hallucinations: None Delusions: Not Present Thought Process: Intact Thought Content: positive for Intact, positive for Goal Oriented and positive for Linear Depressive Symptoms: Increased Anxiety, Difficulty Sleeping, Crying Spells, Loss of Int. in Activity, Feelings of Worthlessness, Hopelessness and Thoughts of /Suicide Judgement: Fair Diagnostics Vital Signs (24Hr): BMI result Body Mass Index 23.5 Assessment & Plan Assessment & Plan (1) Major depressive disorder, recurrent episode with anxious distress: Status: Acute Code(s): F33.9 - Major depressive disorder, recurrent, unspecified Assessment and Plan: Reports I am hanging in there. Still the way I was when I saw you last . Tearful at times, concerned because her employer has denied [employer]. Reports stopped taking prazosin due to side effects. Some passive SI, no intent or plan. Does not want any medication changes at this time. (2) Chronic post-traumatic stress disorder (PTSD): Status: Acute Code(s): F43.12 - Post-traumatic stress disorder, chronic Assessment and Plan: Reports stop taking the prazosin as her blood pressure was getting too low. Tried taking a lower dose of 2 mg, states that was still too much. She did not try 1 mg dose, and is not interested in doing that at this time. Continues with nightmares. Reports that some days she wakes up and ?feels like I am still in the nightmare ?. Does not want any medication changes at this time. Plan 1. Continue with current medication regimen as prescribed. 2. Continue with current [facility] plan of care. 3. Follow-up as per protocol. Patient educated on: diagnosis, medication risk/benefits and therapeutic strategies Informed Consent: understands Reason for contiued partial hosp. stay Substantial Risk for: inability to function, rapid decompensation and med/psych decompensation Certification I certify that partial hospital treatment is medically necessary due to the symptoms and problems resulting from the patient's mental illness and the failure to treat the patient at the partial hospital level of care would likely result in the patient requiring inpatient psychiatric care which could not be prevented at a less intensive level of care. I spent minutes with the patient and/or on the patient floor today, greater than?50% of which was spent counseling/coordinating care. Discharge Plan Discharge Attending provider: Oscar Garcia Medications: No Action hydroxyzine HCl 50 mg Tablet 150 mg PO BEDTIME 0RF Rx Instructions: Take 3 tabs at Bedtime. trazodone 100 mg Tablet 100 - 200 mg PO BEDTIME PRN (Reason: Insomnia) 0RF Rx Instructions: May take 1-2 tabs at bedtime for sleep as needed. sertraline 25 mg Tablet 50 mg PO BEDTIME 0RF Rx Instructions: Take 2 tabs daily at bedtime. prazosin 1 mg Capsule 3 mg PO BEDTIME 30 Days Qty: 90 0RF Protocol: Hold for SBP< HOLD for SBP < : 90 lorazepam 1 mg Tablet 1 mg PO TID 15 Days Qty: 45 1RF Stand Alone Forms: Patient Portal Discharge page Telehealth Telehealth Location of provider rendering services: practice address Location of patient: address on file Patient Identification confirmed using: Name, : Yes Telehealth method: video Patient verbally consented to treatment: Yes Patient verbally consented to billing insurance company: Yes Patient informed of any privacy concerns related to visit: Yes Time spent with patient (mins): 20
--- NOTE | 2021-04-17 11:26 | PM.EVENT ---
Event Note Date of Service: 04/17/21 Event Note: Patient did not attend scheduled 1105 appointment with me this morning.
--- NOTE | 2021-04-17 13:08 | PC.NURSE ---
Patient scheduled to discharge today. Patient stated, I'm ok regarding discharge. Patient stated she is meeting with Zenia Harmon tomorrow regarding insurance issues as she received a letter from her employer that she no longer has insurance. 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 Patient denied SI or thoughts to harm herself. Reviewed patient medications with patient. Patient reports she takes lorazepam PRN, stopped Prazosin, and Sertraline was increased by her provider to 75 mg daily. Verna ferris Np is aware.
--- NOTE | 2021-04-17 14:15 | PC.NURSE ---
I left a message with the clients provider, Cathy shetty clients dc fron [facility].
== END 2021-04-17 23:59 | disposition home or self-care (01) ==
LOC: HO.PHPA 11:15
PROVIDERS: Visit Provider Psychiatry & Neurology Psychiatry
DX: F33.9 Major depressive disorder, recurrent, unspecified (principal); F43.12 Post-traumatic stress disorder, chronic; F10.20 Alcohol dependence, uncomplicated; Z79.899 Other long term (current) drug therapy
CPT/HCPCS: 90791; 90853

== ENCOUNTER 2022-03-13 18:12 | Outpatient (REF) | payer MEDICAID, SELFPAY ==
[2022-03-13 19:08] LABS: Influenza A PCR NEGATIVE (Negative); Influenza B PCR NEGATIVE (Negative); Resp Syncy Virus RNA Qual PCR NEGATIVE (Negative); SARS COV2 PCR INHOUSE NEGATIVE (Negative)
== END 2022-03-13 18:13 | disposition home or self-care (01) ==
LOC: HO.LNP 18:12
PROVIDERS: Visit Provider Physician Assistant Medical
DX: Z20.822 Contact with and (suspected) exposure to COVID-19 (principal); R05.9 Cough, unspecified
CPT/HCPCS: 0241U; 87070

== ENCOUNTER 2023-05-11 15:58 | Outpatient (REF) | payer OTHER, SELFPAY ==
[2023-05-11 16:12] LABS: MANUAL DIFF FLAG NO
[2023-05-11 16:43] LABS: Basophils Percent Auto 0.5 % (0-2); Eosinophils Absolute Auto 0.1 X10*3/uL (0.0-0.4); Eosinophils Percent Auto 1.3 % (0-4); Hemoglobin 13.2 g/dl (12.0-16.0); Imm Gran Abs Auto 0.04 X10*3/uL (0.00-0.03); Imm Gran Pct Auto 0.7 % (0.0-0.4); Lymphocytes Absolute Auto 1.7 X10*3/uL (1.2-4.9); Lymphocytes Percent Auto 30.5 % (20-40); Mean Corpuscular HGB Conc 33.8 g/dl (31.0-35.0); Mean Corpuscular Volume 91.5 fL (80.0-98.0); Mean Platelet Volume 9.2 fL (9.4-12.3); Monocytes Absolute Auto 0.2 X10*3/uL (0.1-1.2); Monocytes Percent Auto 4.3 % (2-11); Neutrophils Absolute Auto 3.5 x10*3/uL (2.0-8.3); Neutrophils Percent Auto 62.7 % (45-73); Platelet Count 255 X10*3/uL (160-400); Red Blood Count 4.26 X10*6/uL (4.20-5.50); Red Cell Distribution Width 11.9 % (11.0-16.0); White Blood Count 5.6 X10*3/uL (4.8-10.8)
[2023-05-11 17:08] LABS: Alanine Aminotransferase 17 U/L (0-31); Albumin Level 4.5 g/dL (3.5-5.0); Alkaline Phosphatase 78 U/L (39-117); Anion Gap 12 (12-20); Aspartate Amino Transferase 20 U/L (5-31); Bilirubin Total 0.6 mg/dL (0.0-1.0); Blood Urea Nitrogen 10 mg/dL (9-16); Calcium 9.8 mg/dL (8.4-10.2); Carbon Dioxide 29 mmol/L (22-29); Chloride 105 mmol/L (96-108); Cholesterol 217 mg/dL (<200); Estimated Glomerular Filt Rate > 60; Glucose Random 93 mg/dL (60-115); HDL Cholesterol 78 mg/dL (>40); LDL Cholesterol Calculated 122 mg/dL (<100); Sodium 142 mmol/L (135-145); Total Protein 7.4 g/dL (6.5-8.0); Triglycerides 85 mg/dL (<150)
[2023-05-11 17:20] LABS: Thyroid Stimulating Hormone 0.93 uIU/mL (0.32-4.0)
[2023-05-12 13:12] LABS: Rubella IgG Antibody 4.89 Index
[2023-05-12 18:13] LABS: Rubeola IgG (Measles) >300.00 AU/mL
[2023-05-12 22:17] LABS: Varicella IgG Antibody >4000.00 index
[2023-05-14 07:48] LABS: TS Negative Control Passed; TS Panel A 4; TS Panel B 1; TS Positive Control Passed; TSpotTB Negative (Negative)
== END 2023-05-11 15:59 | disposition home or self-care (01) ==
LOC: HO.LAB 15:58
PROVIDERS: PCP Internal Medicine; Visit Provider Internal Medicine
DX: Z00.00 Encounter for general adult medical examination without abnormal findings (principal); Z11.1 Encounter for screening for respiratory tuberculosis; I10 Essential (primary) hypertension; I73.00 Raynaud's syndrome without gangrene; L82.1 Other seborrheic keratosis
CPT/HCPCS: 36415; 80053; 80061; 84443; 85025; 86481; 86735; 86762; 86765; 86787

== ENCOUNTER 2023-05-14 11:36 | Outpatient (REF) | payer OTHER, SELFPAY ==
[2023-05-14 11:52] LABS: MANUAL DIFF FLAG NO
[2023-05-14 11:58] LABS: Basophils Percent Auto 0.4 % (0-2); Eosinophils Absolute Auto 0.1 X10*3/uL (0.0-0.4); Eosinophils Percent Auto 1.6 % (0-4); Hematocrit 36.2 % (37.0-47.0); Hemoglobin 12.5 g/dl (12.0-16.0); Imm Gran Abs Auto 0.01 X10*3/uL (0.00-0.03); Imm Gran Pct Auto 0.2 % (0.0-0.4); Lymphocytes Absolute Auto 1.3 X10*3/uL (1.2-4.9); Lymphocytes Percent Auto 28.8 % (20-40); Mean Corpuscular HGB Conc 34.5 g/dl (31.0-35.0); Mean Corpuscular Hemoglobin 31.3 pg (27.0-33.0); Mean Corpuscular Volume 90.5 fL (80.0-98.0); Mean Platelet Volume 8.6 fL (9.4-12.3); Monocytes Absolute Auto 0.3 X10*3/uL (0.1-1.2); Monocytes Percent Auto 6.1 % (2-11); Neutrophils Absolute Auto 2.8 x10*3/uL (2.0-8.3); Neutrophils Percent Auto 62.9 % (45-73); Platelet Count 203 X10*3/uL (160-400); Red Cell Distribution Width 11.9 % (11.0-16.0); White Blood Count 4.5 X10*3/uL (4.8-10.8)
[2023-05-14 12:12] LABS: Cholesterol 193 mg/dL (<200); HDL Cholesterol 69 mg/dL (>40); LDL Cholesterol Calculated 102 mg/dL (<100); Triglycerides 113 mg/dL (<150)
[2023-05-15 04:04] LABS: HBS Num1 7.47 mIU/mL (0-7.99); ~Hepatitis B Surface Antibody NONREACTIVE (Nonreactive)
== END 2023-05-14 11:37 | disposition home or self-care (01) ==
LOC: HO.LAB 11:36
PROVIDERS: PCP Internal Medicine; Visit Provider Internal Medicine
DX: Z00.00 Encounter for general adult medical examination without abnormal findings (principal); Z11.1 Encounter for screening for respiratory tuberculosis; I10 Essential (primary) hypertension; I73.00 Raynaud's syndrome without gangrene; L82.1 Other seborrheic keratosis
CPT/HCPCS: 36415; 80061; 85025; 86706